=== PATIENT | female | born 1965 | race African-American/Black ===

== ENCOUNTER 2022-04-28 07:37 | Emergency (ER) | payer MEDICAID ==
[~2022-04-28] VITALS: Ht 170.2 cm; Wt 78.0 kg
[2022-04-28 07:45] VITALS: BP 157/104
[2022-04-28] MEDS ORDERED: IPRATROPIUM BROMIDE (0.02%) 0.5MG/2.5ML NEB HHN STA (08:27)
[2022-04-28] MEDS ORDERED: ALBUTEROL (0.083%) 2.5MG/3ML NEB HHN STA (08:27)
[2022-04-28] MEDS ORDERED: AZIT250T12 MT (11:01)
[2022-04-28] MEDS ORDERED: ALBU90AE INH (11:01)
== END 2022-04-28 11:43 | disposition home or self-care (01) ==
LOC: ER 07:42
DX: J20.9 Acute bronchitis, unspecified (principal); R09.81 Nasal congestion; R05.9 Cough, unspecified
CPT/HCPCS: 71045; 94640; 99283; Z7610